=== PATIENT | female | born 1975 | race Caucasian/White ===

== ENCOUNTER 2018-01-11 02:07 | Emergency (ER) | payer OTHER ==
[2018-01-11] MEDS ORDERED: NS 1,000 ML IV ONE (02:16)
--- NOTE | 2018-01-11 02:21 | EDPHY ---
H & P Time Seen by Provider: 01/11/18 02:15 HPI/ROS: Chief Complaint: Syncope, face injury HPI: 42-year-old woman is visiting from [place] and staying in a hotel overnight. Patient states that she woke about 1 o'clock this morning with the sensation of her leg feeling asleep. She got up and started moving around and started feeling the pins and needles sensation as her leg was waking up. She then started to feel lightheaded. She lowered herself to her knees and then believe she had a brief syncopal episode, landing on her face. She remembers striking her face. She was wearing a mouth guard at that time. She does admit to drinking 2 glasses of wine with dinner which is unusual for her. No chest pain or palpitations. No headache. No neck pain. No numbness or weakness. On EMS arrival blood pressure was 60 systolic. Last menstrual period was 2 weeks ago. States she could not possibly be . No family history of sudden cardiac . Does not have any a past medical history. ROS: 10 point Review of Systems is negative except as noted in the HPI. PMH: Denies Social History: No smoking, rare alcohol, no recreational drug use Family History: non-contributory Physical Exam: Gen: Awake, Alert, Airway Intact HEENT: Head: Atraumatic Eyes: PERRLA, EOMI Nose: No epistaxis, no septal hematoma Mouth: Normal dentition, Airway patent, she has contusions swelling of her upper lip. There is no laceration. There is a small mucosal abrasion. Face: She has a contusion over left zygoma without bony tenderness or deformity Neck: non-tender, no stepoff, Full ROM without pain Chest: non-tender, lungs CTA Heart: normal heart tones Abd: soft, non-tender, atraumatic Pelvis: non-tender, stable to AP and Lateral compression Back: atraumatic, no midline tenderness Ext: atramatic, full ROM Skin: no rash Neuro: CN II-XII intact, Strength 5/5 in all extremities, sensation intact in all extremities Constitutional: Initial Vital Signs Temperature (C) 35.8 C L 01/11/18 02:26 Heart Rate 80 01/11/18 02:26 Respiratory Rate 16 01/11/18 02:26 Blood Pressure 107/78 01/11/18 02:26 O2 Sat (%) 97 01/11/18 02:26 O2 Delivery Mode Room Air Allergies/Adverse Reactions: No Known Allergies Allergy (Unverified 01/11/18 02:25) Home Medications: Medication Instructions Recorded NK [No Known Home Meds] 01/11/18 Medical Decision Making - Diagnostics EKG Interpretation: ECG time 2:21 a.m., sinus rhythm with a rate of 71, normal axis, normal intervals, no acute ST or T-wave changes. Impression: Normal ECG. ED Course/Re-evaluation: 6-year-old female a had a likely vasovagal syncopal episode this morning after her leg went numb while she was asleep. She has some facial contusions but no evidence of fracture. Her ECG is normal. She is not . Her blood counts are normal. Will discharge with follow-up with primary care physician, return for any concerns. - Data Points Laboratory Results: Laboratory Results 01/11/18 02:20 01/11/18 02:20 01/11/18 01/11/18 01/11/18 02:20 02:20 02:20 WBC 9.04 10^3/uL 10^3/uL (3.80-9.50) RBC 4.35 10^6/uL 10^6/uL (4.18-5.33) Hgb 12.4 g/dL L g/dL (12.6-16.3) Hct 36.7 % L % (38.0-47.0) MCV 84.4 fL fL (81.5-99.8) MCH 28.5 pg pg (27.9-34.1) MCHC 33.8 g/dL g/dL (32.4-36.7) RDW 13.3 % % (11.5-15.2) Plt Count 264 10^3/uL 10^3/uL (150-400) MPV 10.3 fL fL (8.7-11.7) Neut % (Auto) 30.8 % L % (39.3-74.2) Lymph % (Auto) 59.2 % H % (15.0-45.0) [place] % (Auto) 8.0 % % (4.5-13.0) Eos % (Auto) 1.0 % % (0.6-7.6) Baso % (Auto) 0.8 % % (0.3-1.7) Nucleat RBC Rel Count 0.0 % % (0.0-0.2) Absolute Neuts (auto) 2.79 10^3/uL 10^3/uL (1.70-6.50) Absolute Lymphs (auto) 5.35 10^3/uL H 10^3/uL (1.00-3.00) Absolute Monos (auto) 0.72 10^3/uL 10^3/uL (0.30-0.80) Absolute Eos (auto) 0.09 10^3/uL 10^3/uL (0.03-0.40) Absolute Basos (auto) 0.07 10^3/uL 10^3/uL (0.02-0.10) Absolute Nucleated RBC 0.00 10^3/uL 10^3/uL (0-0.01) Immature Gran % 0.2 % % (0.0-1.1) Immature Gran # 0.02 10^3/uL 10^3/uL (0.00-0.10) Sodium 135 mEq/L mEq/L (135-145) Potassium 3.8 mEq/L mEq/L (3.3-5.0) Chloride 100 mEq/L mEq/L (97-110) Carbon Dioxide 25 mEq/l mEq/l (22-31) Anion Gap 10 mEq/L mEq/L (8-16) BUN 11 mg/dL mg/dL (7-23) Creatinine 0.6 mg/dL mg/dL (0.6-1.0) Estimated GFR > 60 Glucose 112 mg/dL H mg/dL (70-100) Calcium 9.7 mg/dL mg/dL (8.5-10.4) Beta HCG, Qual NEGATIVE Medications Given: Discontinued Medications Sodium Chloride (Ns) 1,000 mls @ 0 mls/hr IV ONCE ONE; Wide Open PRN Reason: Protocol Stop: 01/11/18 02:17 Last Admin: 01/11/18 02:32 Dose: 1,000 mls Departure - Departure Disposition: Home, Routine, Self-Care Clinical Impression: Syncope, Contusion of face Condition: Good Instructions: Syncope (ED), Facial Contusion (ED) Additional Instructions: Follow up with primary care physician in 3-4 days for further evaluation. Return to the emergency department for further fainting, chest pain, palpitations, headache, worsening facial pain, nausea, vomiting, or any other concerns. Referrals: Patient,NotPresent [Unknown] - As per Instructions
[2018-01-11 02:29] LABS: PLATELET COUNT 264 10^3/uL (150-400)
[2018-01-11] MEDS ORDERED: IBUPROFEN 600 MG TAB PO ONE (03:13)
[2018-01-11 03:24] VITALS: BP 115/68
== END 2018-01-11 03:30 | disposition home or self-care (01) ==
DX: S00.83XA Contusion of other part of head, initial encounter (principal); R55 Syncope and collapse; E86.9 Volume depletion, unspecified; W22.8XXA Striking against or struck by other objects, initial encounter; Y92.59 Other trade areas as the place of occurrence of the external cause